=== PATIENT | female | born 1960 | race Hispanic/Latino ===

== ENCOUNTER 2024-08-14 22:40 | Inpatient (IN) | payer OTHER ==
[~2024-08-14] VITALS: Ht 162.6 cm; Wt 115.2 kg
[2024-08-14 22:42] VITALS: PULSE 104; RESP 20; TEMP 97.6
[2024-08-14] MEDS ORDERED: IOPAMIDOL 370 MG/ML 100 ML INFUS..BTL INJ ONE (23:38)
[2024-08-14] MEDS: ONDANSETRON HCL INJ 2MG/ML 2ML 2 MG/ML VIAL IV STA (23:38)
[2024-08-14] MEDS: SODIUM CHLORIDE 0.9% 1000ML 1,000 ML IV STA (23:38)
[2024-08-14] MEDS: Morphine 4mg INJECTION 4 MG/ML INJ IV STA (23:41)
[2024-08-15] VITALS (9 sets, daily range): BP systolic 110–139; BP diastolic 48–66; PULSE 72–82; RESP 16–18; TEMP 97.9–98.5; O2SAT 98–100
[2024-08-15] MEDS: SODIUM CHLORIDE 0.9% 1000ML 1,000 ML IV SCH (02:39)
[2024-08-15] MEDS: Morphine 4mg INJECTION 4 MG/ML INJ IV PRN (08:41)
[2024-08-15] MEDS: ONDANSETRON HCL INJ 2MG/ML 2ML 2 MG/ML VIAL IV PRN (08:41)
[2024-08-15] MEDS ORDERED: DEXTROSE 50% SYRINGE 50 ML IV PRN (15:45)
[2024-08-15] MEDS ORDERED: DOCUSATE SODIUM 100 MG CAP PO PRN (15:45)
[2024-08-15] MEDS ORDERED: ACETAMINOPHEN 325 MG TAB PO PRN (15:45)
[2024-08-15] MEDS ORDERED: LIDOCAINE 4% PATCH TP PRN (15:45)
[2024-08-15] MEDS ORDERED: POTASSIUM CHLORIDE 20 MEQ TAB CR PO PRN (15:45)
[2024-08-15] MEDS ORDERED: ALBUTEROL/IPRATROPIUM 3 ML NEB NEB PRN (15:45)
[2024-08-15] MEDS ORDERED: DIPHENHYDRAMINE HCL 25 MG CAP PO PRN (15:45)
[2024-08-15] MEDS ORDERED: SIMETHICONE 80 MG CHEW PO PRN (15:45)
[2024-08-15] MEDS ORDERED: BENZONATATE 100 MG CAP PO PRN (15:45)
[2024-08-15] MEDS: ENOXAPARIN SOD INJ 40 MG/0.4 ML SYR SC SCH (17:12)
[2024-08-15] MEDS ORDERED: MELATONIN 5 MG TABLET PO PRN (21:00)
[2024-08-16] VITALS (10 sets, daily range): BP systolic 116–153; BP diastolic 56–70; PULSE 72–86; RESP 14–20; TEMP 97.3–98.2; O2SAT 96–100
[2024-08-16 07:03] LABS: BASOPHILS % 0.1 % (0.0-1.0); EOSINOPHILS # (AUTO) 0.2 (0.0-0.4); EOSINOPHILS % 2.5 % (0.0-6.0); HEMATOCRIT 34.6 % (34.2-44.1); HEMOGLOBIN 10.8 g/dL (12.0-16.0); LYMPHOCYTES # (AUTO) 2.2 (1.0-3.2); LYMPHOCYTES % 31.4 % (18.0-39.1); MEAN CORPUSCULAR HEMOGLOBIN 27.8 pg (28-32); MEAN CORPUSCULAR HGB CONC 31.2 g/dL (31-35); MEAN CORPUSCULAR VOLUME 89.2 fL (81-99); MONOCYTES # (AUTO) 0.6 (0.2-0.8); MONOCYTES % 8.6 % (4.4-11.3); NEUTROPHILS # (AUTO) 3.9 (2.1-6.9); NEUTROPHILS % 57.3 % (38.7-80.0); PLATELET COUNT 233 x10e3/uL (140-360); RED BLOOD COUNT 3.88 x10e6/uL (3.6-5.1); RED CELL DISTRIBUTION WIDTH 13.8 % (11.7-14.4); WHITE BLOOD COUNT 6.88 x10e3/uL (4.8-10.8)
[2024-08-16 07:24] LABS: MAGNESIUM 1.8 MG/DL (1.3-2.1); PHOSPHORUS 2.3 MG/DL (2.3-4.7)
[2024-08-16 08:33] LABS: ALBUMIN 3.1 g/dL (3.5-5.0); ANION GAP 14.4 mmol/L (8-16); CREATININE, SERUM 0.69 mg/dL (0.57-1.11); TOTAL PROTEIN 6.1 g/dL (6.5-8.1)
[2024-08-16 08:35] LABS: POTASSIUM 3.4 mmol/L (3.5-5.1)
[2024-08-16] MEDS: PANTOPRAZOLE SOD 40 MG TABEC PO SCH (12:59)
[2024-08-16] MEDS: D5NS/KCL 20MEQ 1,000 ML IV SCH (17:58)
[2024-08-17] VITALS (14 sets, daily range): BP systolic 107–146; BP diastolic 59–90; PULSE 74–89; RESP 14–20; TEMP 97.2–98.2; O2SAT 94–100
[2024-08-17 07:06] LABS: BASOPHILS % 0.2 % (0.0-1.0); EOSINOPHILS # (AUTO) 0.2 (0.0-0.4); EOSINOPHILS % 2.5 % (0.0-6.0); HEMATOCRIT 35.4 % (34.2-44.1); HEMOGLOBIN 11.1 g/dL (12.0-16.0); LYMPHOCYTES # (AUTO) 1.7 (1.0-3.2); LYMPHOCYTES % 27.8 % (18.0-39.1); MEAN CORPUSCULAR HEMOGLOBIN 28.1 pg (28-32); MEAN CORPUSCULAR HGB CONC 31.4 g/dL (31-35); MEAN CORPUSCULAR VOLUME 89.6 fL (81-99); MONOCYTES # (AUTO) 0.6 (0.2-0.8); MONOCYTES % 9.3 % (4.4-11.3); NEUTROPHILS # (AUTO) 3.6 (2.1-6.9); NEUTROPHILS % 59.9 % (38.7-80.0); PLATELET COUNT 208 x10e3/uL (140-360); RED BLOOD COUNT 3.95 x10e6/uL (3.6-5.1); RED CELL DISTRIBUTION WIDTH 13.4 % (11.7-14.4); WHITE BLOOD COUNT 6.01 x10e3/uL (4.8-10.8)
[2024-08-17 07:36] LABS: ANION GAP 11.4 mmol/L (8-16); CALCIUM 8.1 mg/dL (8.4-10.2); CREATININE, SERUM 0.68 mg/dL (0.57-1.11)
[2024-08-17 07:40] LABS: POTASSIUM 3.4 mmol/L (3.5-5.1)
[2024-08-17] MEDS ORDERED: PROPOFOL IV EMULSION 10 MG/ML 20 ML VIAL ONE (09:46)
[2024-08-17] MEDS ORDERED: ROCURONIUM BROMIDE 1 ML IV ONE ×3 (09:46→13:42)
[2024-08-17] MEDS ORDERED: FENTANYL CITRATE/PF 100MCG/2 ML INJ ONE (09:46)
[2024-08-17] MEDS ORDERED: LIDOCAINE HCL 2% LOCAL INJ 5 ML SDV VIAL INJ ONE (09:46)
[2024-08-17] MEDS ORDERED: METOCLOPRAMIDE HCL 10 MG/2ML VIAL ONE (12:28)
[2024-08-17] MEDS ORDERED: ONDANSETRON HCL INJ 2MG/ML 2ML 2 MG/ML VIAL ONE (12:28)
[2024-08-17] MEDS ORDERED: HYDROMORPHONE 2MG/ML ONE (13:03)
[2024-08-17] MEDS ORDERED: ACETAMINOPHEN 1000 MG/100 ML 100 ML IV ONE (13:06)
[2024-08-17] MEDS ORDERED: SUGAMMADEX SODIUM 200 MG/2 ML VIAL IV ONE (13:52)
[2024-08-17] MEDS: SODIUM CHLORIDE 0.9% 250ML IRRIG IR SCH (14:00)
[2024-08-17] MEDS ORDERED: NALOXONE HCL INJ 0.4 MG/ML AMP IV PRN (14:30)
[2024-08-17] MEDS: HYDROMORPHONE 0.2MG/ML-SOD CHL 30ML PCA SYRINGE IV PRN (15:11)
[2024-08-17] MEDS: ACETAMINOPHEN 1000 MG/100 ML IV PRN (21:17)
[2024-08-18] VITALS (11 sets, daily range): BP systolic 137–186; BP diastolic 70–79; PULSE 69–83; RESP 16–22; TEMP 96.7–98.3; O2SAT 98–100
[2024-08-18 07:56] LABS: BASOPHILS % 0.2 % (0.0-1.0); EOSINOPHILS % 0.2 % (0.0-6.0); HEMATOCRIT 35.3 % (34.2-44.1); HEMOGLOBIN 11.1 g/dL (12.0-16.0); LYMPHOCYTES # (AUTO) 1.2 (1.0-3.2); LYMPHOCYTES % 11.7 % (18.0-39.1); MEAN CORPUSCULAR HGB CONC 31.4 g/dL (31-35); MEAN CORPUSCULAR VOLUME 89.1 fL (81-99); MONOCYTES # (AUTO) 0.7 (0.2-0.8); MONOCYTES % 7.1 % (4.4-11.3); NEUTROPHILS # (AUTO) 8.1 (2.1-6.9); NEUTROPHILS % 80.6 % (38.7-80.0); PLATELET COUNT 253 x10e3/uL (140-360); RED BLOOD COUNT 3.96 x10e6/uL (3.6-5.1); RED CELL DISTRIBUTION WIDTH 13.6 % (11.7-14.4); WHITE BLOOD COUNT 10.09 x10e3/uL (4.8-10.8)
[2024-08-18 08:12] LABS: ANION GAP 11.5 mmol/L (8-16); BLOOD UREA NITROGEN < 5 mg/dL (7-26); CALCIUM 8.1 mg/dL (8.4-10.2); CARBON DIOXIDE 26 mmol/L (22-29); CHLORIDE 108 mmol/L (98-107); CREATININE, SERUM 0.65 mg/dL (0.57-1.11); EST GLOMERULAR FILTRATION RATE 99 ML/MIN (>=60); GLUCOSE 133 mg/dL (74-118); POTASSIUM 3.5 mmol/L (3.5-5.1); SODIUM 142 mmol/L (136-145)
[2024-08-18 08:16] LABS: BUN/CREATININE RATIO 8 (6-25)
[2024-08-18] MEDS: HYDRALAZINE HCL 20 MG/ML VIAL IV PRN (15:41)
[2024-08-18] MEDS: BISACODYL 10 MG SUPP PR SCH (22:42)
[2024-08-19] VITALS (10 sets, daily range): BP systolic 130–150; BP diastolic 64–71; PULSE 74–83; RESP 16–22; TEMP 97.5–98.9; O2SAT 98–100
[2024-08-19] MEDS: BUPIVACAINE LIPOSOME/PF 266 MG/20 ML IJ ONE (07:44)
[2024-08-19] MEDS: ROPIVACAINE/EPI/CLONIDINE/KET 50 ML SYRINGE INJ ONE (07:44)
[2024-08-19] MEDS: PIPERACILLIN/TAZOBACTAM 3.375 GM VIAL ONE (07:45)
[2024-08-19] MEDS: SODIUM CHLORIDE 0.9% 100 ML ONE (07:45)
[2024-08-19] MEDS: HYDROMORPHONE 0.2MG/ML-SOD CHL 30ML PCA SYRINGE IV ONE (07:45)
[2024-08-19] MEDS ORDERED: HYDROMORPHONE 1MG/1ML INJ IV PRN (10:15)
[2024-08-19] MEDS: BISACODYL 10 MG SUPP PR ONE (11:40)
[2024-08-19 11:57] LABS: BASOPHILS % 0.2 % (0.0-1.0); EOSINOPHILS # (AUTO) 0.2 (0.0-0.4); EOSINOPHILS % 1.7 % (0.0-6.0); HEMOGLOBIN 10.9 g/dL (12.0-16.0); LYMPHOCYTES # (AUTO) 1.3 (1.0-3.2); LYMPHOCYTES % 15.2 % (18.0-39.1); MEAN CORPUSCULAR HEMOGLOBIN 28.1 pg (28-32); MEAN CORPUSCULAR HGB CONC 32.1 g/dL (31-35); MEAN CORPUSCULAR VOLUME 87.6 fL (81-99); MONOCYTES # (AUTO) 0.8 (0.2-0.8); MONOCYTES % 8.6 % (4.4-11.3); NEUTROPHILS # (AUTO) 6.4 (2.1-6.9); PLATELET COUNT 242 x10e3/uL (140-360); RED BLOOD COUNT 3.88 x10e6/uL (3.6-5.1)
[2024-08-19 12:11] LABS: ANION GAP 12.3 mmol/L (8-16); BLOOD UREA NITROGEN < 5 mg/dL (7-26); CALCIUM 8.3 mg/dL (8.4-10.2); CARBON DIOXIDE 25 mmol/L (22-29); CHLORIDE 107 mmol/L (98-107); CREATININE, SERUM 0.58 mg/dL (0.57-1.11); EST GLOMERULAR FILTRATION RATE 102 ML/MIN (>=60); GLUCOSE 122 mg/dL (74-118); SODIUM 141 mmol/L (136-145)
[2024-08-19 12:13] LABS: BUN/CREATININE RATIO 9 (6-25); POTASSIUM 3.3 mmol/L (3.5-5.1)
[2024-08-20] VITALS (11 sets, daily range): BP systolic 136–159; BP diastolic 63–75; PULSE 73–88; RESP 18–20; TEMP 98–98.9; O2SAT 94–100
[2024-08-20 06:54] LABS: BASOPHILS % 0.3 % (0.0-1.0); EOSINOPHILS # (AUTO) 0.2 (0.0-0.4); EOSINOPHILS % 3.6 % (0.0-6.0); HEMATOCRIT 33.4 % (34.2-44.1); HEMOGLOBIN 10.5 g/dL (12.0-16.0); LYMPHOCYTES # (AUTO) 1.8 (1.0-3.2); LYMPHOCYTES % 27.4 % (18.0-39.1); MEAN CORPUSCULAR HEMOGLOBIN 27.6 pg (28-32); MEAN CORPUSCULAR HGB CONC 31.4 g/dL (31-35); MEAN CORPUSCULAR VOLUME 87.9 fL (81-99); MONOCYTES # (AUTO) 0.6 (0.2-0.8); MONOCYTES % 9.1 % (4.4-11.3); NEUTROPHILS # (AUTO) 3.8 (2.1-6.9); NEUTROPHILS % 59.3 % (38.7-80.0); PLATELET COUNT 239 x10e3/uL (140-360); WHITE BLOOD COUNT 6.46 x10e3/uL (4.8-10.8)
[2024-08-20 07:21] LABS: BLOOD UREA NITROGEN < 5 mg/dL (7-26); CALCIUM 8.2 mg/dL (8.4-10.2); CARBON DIOXIDE 24 mmol/L (22-29); CHLORIDE 107 mmol/L (98-107); CREATININE, SERUM 0.59 mg/dL (0.57-1.11); EST GLOMERULAR FILTRATION RATE 101 ML/MIN (>=60); GLUCOSE 100 mg/dL (74-118); SODIUM 140 mmol/L (136-145)
[2024-08-20 07:22] LABS: BUN/CREATININE RATIO 8 (6-25)
[2024-08-20] MEDS ORDERED: HYDROCODONE/APAP 7.5MG-325MG 1 EA TAB PO PRN (18:00)
[2024-08-21] VITALS: BP 125/70; PULSE 74; RESP 17; TEMP 98.7; O2SAT 100
[2024-08-21 04:00] VITALS: BP 136/58; PULSE 70; RESP 18; TEMP 97.7; O2SAT 100
[2024-08-21 07:01] LABS: BASOPHILS % 0.3 % (0.0-1.0); EOSINOPHILS # (AUTO) 0.2 (0.0-0.4); EOSINOPHILS % 3.2 % (0.0-6.0); HEMATOCRIT 33.7 % (34.2-44.1); HEMOGLOBIN 10.2 g/dL (12.0-16.0); LYMPHOCYTES # (AUTO) 1.7 (1.0-3.2); MEAN CORPUSCULAR HEMOGLOBIN 27.5 pg (28-32); MEAN CORPUSCULAR HGB CONC 30.3 g/dL (31-35); MEAN CORPUSCULAR VOLUME 90.8 fL (81-99); MONOCYTES # (AUTO) 0.5 (0.2-0.8); MONOCYTES % 8.2 % (4.4-11.3); NEUTROPHILS # (AUTO) 3.6 (2.1-6.9); PLATELET COUNT 235 x10e3/uL (140-360); RED BLOOD COUNT 3.71 x10e6/uL (3.6-5.1); WHITE BLOOD COUNT 6.01 x10e3/uL (4.8-10.8)
[2024-08-21 07:33] LABS: ALANINE AMINOTRANSFERASE 20 IU/L (0-55); ALBUMIN 2.8 g/dL (3.5-5.0); ALBUMIN/GLOBULIN RATIO 1.1 (0.8-2.0); ALKALINE PHOSPHATASE 73 IU/L (40-150); ANION GAP 14.2 mmol/L (8-16); BILIRUBIN,TOTAL 0.6 mg/dL (0.2-1.2); BLOOD UREA NITROGEN < 5 mg/dL (7-26); CALCIUM 8.3 mg/dL (8.4-10.2); CARBON DIOXIDE 21 mmol/L (22-29); CHLORIDE 109 mmol/L (98-107); EST GLOMERULAR FILTRATION RATE 101 ML/MIN (>=60); GLUCOSE 92 mg/dL (74-118); SODIUM 141 mmol/L (136-145); TOTAL PROTEIN 5.4 g/dL (6.5-8.1)
[2024-08-21 07:35] LABS: BUN/CREATININE RATIO 8 (6-25); POTASSIUM 3.2 mmol/L (3.5-5.1)
[2024-08-21 08:07] VITALS: PULSE 71; RESP 18; O2SAT 98
[2024-08-21 08:37] VITALS: BP 137/61; PULSE 71; RESP 18; TEMP 98.1; O2SAT 98
[2024-08-21 12:27] VITALS: BP 158/71; PULSE 85; RESP 20; TEMP 98.1; O2SAT 100
[2024-08-21] MEDS ORDERED: ONDANSETRON HCL 4 MG ORAL DISINTEGRATING TAB PO PRN (14:15)
[2024-08-21] MEDS: POTASSIUM CHLORIDE 20 MEQ TAB CR PO STA (14:55)
[2024-08-21] MEDS: BISACODYL 10 MG SUPP PR ONE (14:55)
== END 2024-08-21 16:08 | disposition home or self-care (01) | DRG 330 ==
LOC: FSED 22:45 → ERHOLD 08-15 00:42 → MED/SURG3 08-15 01:57
PROVIDERS: ADMIT Internal Medicine; ATTEND Internal Medicine
PROC: 0DB80ZZ Excision of Small Intestine, Open Approach (ICD-10-PCS; 2024-08-17)
PROC: 07BB0ZZ Excision of Mesenteric Lymphatic, Open Approach (ICD-10-PCS; 2024-08-17)
PROC: 0DBB0ZZ Excision of Ileum, Open Approach (ICD-10-PCS; principal; 2024-08-17 12:12)
DX: C7A.012 Malignant carcinoid tumor of the ileum (principal); C7B.01 Secondary carcinoid tumors of distant lymph nodes; K56.690 Other partial intestinal obstruction; N39.0 Urinary tract infection, site not specified; Z68.41 Body mass index [BMI] 40.0-44.9, adult; C7A.011 Malignant carcinoid tumor of the jejunum; B96.20 Unspecified Escherichia coli [E. coli] as the cause of diseases classified elsewhere; R59.0 Localized enlarged lymph nodes; K63.9 Disease of intestine, unspecified; K57.30 Diverticulosis of large intestine without perforation or abscess without bleeding; E66.01 Morbid (severe) obesity due to excess calories; Z71.3 Dietary counseling and surveillance; Z71.81 Spiritual or religious counseling; Z90.49 Acquired absence of other specified parts of digestive tract
CPT/HCPCS: 36415; 74018; 74177; 74250; 80048; 80053; 80076; 81003; 82948; 83690; 83735; 84100; 84484; 85025; 87086; 87186; 88304; 88309; 88342; 93005; 94799; 96374; 96376; 99252; 99284; J0360; J0666; J1171; J1650; J2003; J2270; J2405; J2470; J2543; J2765; J7030; J7050; Q9967